=== PATIENT | male | born 1990 | race Caucasian/White ===

== ENCOUNTER 2021-02-01 15:38 | Emergency (ER) | payer MEDICAID ==
[~2021-02-01] VITALS: Ht 165.1 cm; Wt 77.3 kg
[2021-02-01] MEDS ORDERED: CloNIDine HCL 0.1 MG TABLET PO ONE (16:15)
[2021-02-01 16:28] LABS: COVID AG,FIA SOURCE NASAL SWAB
[2021-02-01 18:13] VITALS: BP 146/96
== END 2021-02-01 18:43 | disposition home or self-care (01) ==
LOC: EMS 15:42
DX: F11.23 Opioid dependence with withdrawal (principal); F19.10 Other psychoactive substance abuse, uncomplicated; R11.2 Nausea with vomiting, unspecified; M79.10 Myalgia, unspecified site; F17.210 Nicotine dependence, cigarettes, uncomplicated; Z20.822 Contact with and (suspected) exposure to COVID-19
CPT/HCPCS: 87426; 99283